=== PATIENT | female | born 1950 | race Native Hawaiian/Other Pacific Islander ===

== ENCOUNTER 2020-10-20 08:06 | Outpatient (CLI) | payer OTHER | END 2020-10-20 19:47 | disposition home or self-care (01) | LOC: NM 08:06 | PROVIDERS: ATTEND Podiatrist | DX: M84.375D Stress fracture, left foot, subsequent encounter for fracture with routine healing (principal); M85.88 Other specified disorders of bone density and structure, other site | CPT/HCPCS: A9561 ==

== ENCOUNTER 2021-10-12 13:21 | Outpatient (CLI) | payer OTHER | END 2021-10-12 20:55 | disposition home or self-care (01) | LOC: US 13:21 | PROVIDERS: ATTEND Podiatrist | DX: M79.662 Pain in left lower leg (principal); M79.661 Pain in right lower leg ==